=== PATIENT | male | born 1945 | race Caucasian/White ===

== ENCOUNTER → 2023-07-02 | Outpatient (CLI) | payer MEDICARE, OTHER, SELFPAY ==
--- NOTE | 2023-07-02 09:46 | NM_ITS ---
CLINICAL: 78-year-old male with history of recent diagnosis of primary prostate carcinoma. WHOLE BODY 99m Tc MDP RADIONUCLIDE BONE SCINTIGRAPHY COMPARISON: None available FINDINGS: Following the intravenous administration of 28.0 mCi of 99m Tc MDP, whole body bone images reveal: 1. Increased radiotracer distribution is defined in the acromioclavicular and sternoclavicular compartments of both shoulders, the right wrist and hand, the left hip involving the anterior acetabulum-femoral head interface. 2. The remaining skeletal structures are scintigraphically unremarkable with normal-appearing renal images and urinary bladder activity identified. There is calcification of the bilateral costochondral junction. Facilitated uptake is noted in the interorbital aspect of the skull and bilateral maxilla most consistent with periostitis and/or periodontics disease. NM/Bone Scan Whole Body IMPRESSION: 1. The increase in radiopharmaceutical concentration defined in the bilateral shoulders, the right wrist and hand, the left hip is commensurate with degenerative arthrosis. 2. There is no definitive scintigraphic evidence of diffuse axial skeletal metastatic disease on the present examination. Electronically Signed: Enrique Rich DO at 12:01 EDT ,
== END | disposition home or self-care (01) ==
LOC: NM 09:46
PROVIDERS: PCP Family Medicine; Referring Provider Urology; Visit Provider Urology
DX: C61 Malignant neoplasm of prostate (principal)
CPT/HCPCS: 78306; A9503

== ENCOUNTER → 2023-07-09 | Outpatient (CLI) | payer MEDICARE, OTHER, SELFPAY ==
--- NOTE | 2023-07-09 13:01 | CT_ITS ---
STUDY: CT ABDOMEN AND PELVIS WITH CONTRAST REASON FOR EXAM: Male, 78 years old. MALIGNANT NEOPLASM OF PROSTATE RADIATION DOSAGE (If Supplied By Facility): CTDIvol = ( 14.85 ) mGy, DLP = ( 1408.32 ) mGycm TECHNIQUE: IV 50mL Isovue-370 was administered. Transaxial images were obtained from the dome of the diaphragm to the symphysis pubis. Multiplanar coronal and sagittal images were reformatted. Individualized Dose Optimization Techniques Were Used For This CT. COMPARISON: No relevant prior comparison study available FINDINGS: The visualized lung bases are unremarkable. The visualized portions of the heart are within normal limits. Normal liver. Normal gallbladder and extrahepatic biliary system. Normal spleen. Normal pancreas. Normal bilateral adrenal glands. 3.5 cm simple cyst in the upper pole of the right kidney for which no further follow-up exam is needed. Mild nonspecific bilateral perinephric stranding. No evidence of hydronephrosis. Mild thickening of the distal esophagus could reflect gastroesophageal reflux. Normal small intestine. Sigmoid diverticulosis without evidence of acute diverticulitis. The appendix is visualized and appears normal. There is atherosclerotic calcification of the abdominal aorta, without a demonstrated aneurysm. No retroperitoneal adenopathy. Normal urinary bladder. There are prostatic calcifications. Normal abdominal wall. Degenerative changes of the spine. Tiny sclerotic lesion in the vertebral body of L5 could be due to bone island. Otherwise no evidence of destructive bony process. CT/Abdomen/Pelvis W IV Cont ONLY IMPRESSION: 1. No focal acute inflammatory process. 2. Tiny sclerotic lesion in the vertebral body of L5 could be due to bone island. Correlation with bone scan is recommended. 3. Otherwise no evidence of metastatic disease. Mild thickening of the distal esophagus with gas could reflect gastroesophageal reflux. Electronically Signed: Jose Armando MD at 14:21 EDT ,
[2023-07-09 13:37] LABS: CREATININE FINGERSTICK < 1.0 mg/dL (0.70-1.30); EGFR FINGERSTICK > 60.0000 mL/min (>60)
== END | disposition home or self-care (01) ==
LOC: CT 12:56
PROVIDERS: PCP Family Medicine; Referring Provider Urology; Visit Provider Urology
DX: C61 Malignant neoplasm of prostate (principal)
CPT/HCPCS: 74177; Q9967

== ENCOUNTER → 2023-07-27 | Outpatient (CLI) | payer MEDICARE, OTHER, SELFPAY ==
--- NOTE | 2023-07-27 09:30 | PET_ITS ---
EXAMINATION: PSMA-Pylarify PET-CT INDICATIONS: A 78-year-old male with history of primary prostate carcinoma presenting for apparent initial staging examination. COMPARISON: None available. INDEX LESION SIZE SUV PROMISE SCORE INTERPRETATION Prostate gland 35.7 mm 38.13 3 Fulfills quantitative criteria for viable neoplasm. Right inguinal region 11.7 mm 18.53 Approximating 3 Fulfills quantitative criteria for viable neoplasm. TECHNIQUE: Following the intravenous administration of 8.23 mCi of PSMA-Pylarify via the right hand, image acquisitions of the head, neck, chest, abdomen and pelvis to the level of the mid thigh at 73 minutes post-tracer distribution reveal: The examination was interpreted using the EANM (Nelly et al., Journal of Nuclear Medicine Molecular Imaging 44:1622, 2017) and PROMISE (Lewis et al., Journal of Nuclear Medicine 59:469, 2018) interpretive criteria. HEIGHT: 69 inches. WEIGHT: 225 lbs. PSMA expression score PROMISE criteria: High (3): SUV ? parotid-salivary gland, intermediate (2): SUV ? liver, low (1): > blood pool, < liver, (0): < blood pool. SUV reference values: Parotid glands: 19.95 Normal liver parenchyma: 9.1 Blood pool: 1.5 FINDINGS: Head/Neck: Physiologic tracer distribution is noted in the bilateral parotid and submandibular glands. Physiologic uptake is noted in the nasal cavity. There is no evidence of abnormal increased tracer uptake within the context of the cranial vault. CHEST: There is no evidence of abnormal increased radiopharmaceutical within the context of the bilateral hemithorax pulmonary parenchyma, mediastinal structures and right-left thoracic perihilum. Pertinent chest CT findings are as follows. Mediastinal soft tissue densities are ametabolic. There are no parenchymal densities-nodules defined in the right and left hemithorax with quantitatively significant increased tracer uptake. Atherosclerotic calcification is defined in the thoracic aorta without evidence of dilatation, aneurysm formation. Coronary arterial calcification is observed. Abdomen/Pelvis: Radiopharmaceutical concentration is defined in the lower pelvis associated with the prostate gland. The calculated maximum standard uptake value is 38.13. The PROMISE score is 3. The maximum axial diameter of the metabolic, morphologic abnormality is 35.7 mm. There is an asymmetric increase in radiopharmaceutical concentration noted in the right inguinal region. The calculated maximum standard uptake value is 18.53. The PROMISE score approximates 3. The maximum axial diameter of the metabolic, morphologic abnormality is 11.7 mm. There is physiologic tracer uptake noted in the hepatic and splenic parenchyma, the bilateral renal units, the urinary bladder, and visualized intestinal tract. The abdomen and pelvis CT findings are as follows. The gallbladder is surgically absent. There is atherosclerotic calcification defined in the abdominal aorta without evidence of dilatation-aneurysm formation. Abdominal-pelvic arterial calcification is defined. Colonic diverticula are encountered without evidence of diverticulitis. Calcification is noted within the prostate gland. Right and left inguinal fat containing hernias are demonstrated. Cortical cyst formation is defined in the left kidney. Skeletal: Degenerative changes defined in the cervical, thoracic and lumbar spine demonstrate no evidence of glucose hypermetabolism. There is no visualized sclerotic-lytic changes manifest on review of the appendicular-axial skeletal structures. PET/PET/CT Tumor Base -Thigh Init IMPRESSION: 1. ABNORMAL EXAMINATION INDICATIVE OF MALIGNANT-VIABLE NEOPLASM. 2. Increased radiotracer distribution noted within the prostate gland fulfills quantitative criteria for malignant transformation. 3. Facilitated uptake noted in the right inguinal region associated with a single nodular focus fulfills quantitative criteria for viable neoplasia. Electronic Signature Enrique Rich D.O. Accurate Quantification of SUVs and standardized PROMISE scores for this report are calculated using the exclusive [employer], ([place] Patent No. [id number] [phone] [phone] [place] patent [id number] [phone] ). Standardization and correction of the FDG SUV metric exclusively available with [employer] intellectual property, allow for vendor non-specific objective quantitative sequential FDG PET-CT comparison and otherwise unobtainable optimization of the sensitivity and specificity of the examination. [email or web address] Electronically Signed: Enrique Rich DO at 8:23 EDT ,
== END | disposition home or self-care (01) ==
LOC: ONC 09:03
PROVIDERS: PCP Family Medicine; Referring Provider Urology; Visit Provider Urology
DX: C61 Malignant neoplasm of prostate (principal); R97.21 Rising PSA following treatment for malignant neoplasm of prostate
CPT/HCPCS: 78815; A9595

== ENCOUNTER → 2023-08-12 | Outpatient (CLI) | payer MEDICARE, OTHER, SELFPAY ==
--- NOTE | 2023-08-12 08:05 | MRI_ITS ---
STUDY: MR PROSTATE GLAND/ PELVIS WITH T WITHOUT CONTRAST REASON FOR EXAM: Male, 78 years old. elevated PSA, reoccurence prostate CA, frozen area on prostate, 21cc clariscan eval for disease extent/extraprostate disease -- has PSMA PET TECHNIQUE: Standardized fat and water weighted pulse sequences were obtained in all 3 orthogonal planes, pre-and post contrast administration. 21cc clariscan was administered for the contrast portion of the examination. COMPARISON: PET/CT exam dated July 27, 2023. CT of abdomen and pelvis dated July 09, 2023. FINDINGS: Prostate gland volume/size: There is a very small remaining amount of prostate tissue/very small gland measuring 3.7 x 2.07 cm in diameter, that is diffusely heterogeneous in appearance. Correlate with history of prior treatment of the prostate gland or perhaps some inflammatory process that resulted in atrophy. There is diffuse postcontrast enhancement of the prostate parenchyma without a focal discrete mass or nodule seen separate in the parenchyma. On the diffusion-weighted sequence the entire gland is bright with associated dark signal on ADC map which is typically seen with diffuse malignancy. The diffuse nature is similar to the abnormal uptake seen on the PET scan although the uptake on the PET scan was more asymmetric to the right. Anterior fibromuscular stroma: Intact Peripheral zone: Diffusely heterogeneous and nodular Central zone: Diffusely heterogeneous and nodular Transitional zone: Diffusely heterogeneous and nodular Prostate capsule: Intact Seminal vesicles: Very small/hypoplastic. Normal preserved fluid signal on the right but intermediate signal and fibrosis seen in the left seminal vesicles. No visualized mass within the seminal vesicles. Pelvic sidewall lymphadenopathy: None demonstrated Bony structures: No lytic or blastic lesions or active marrow edema. Small bilateral hip joint effusions are present. Bladder: Mild thickening and trabeculation of the bladder wall. Normal amount of fluid distention within the bladder lumen. No visualized bladder masses. Anterior bladder wall urachal remnant noted. Findings suggest sequela chronic cystitis. Normal visualized small intestine. There are multiple colonic diverticula of the sigmoid colon consistent with chronic diverticulosis. There is no pelvic fluid. There is no pelvic mass lesion. No visualized inguinal lymphadenopathy. Small fat-containing right inguinal hernia noted. There are diffuse degenerative changes of the visualized lumbar spine. Normal abdominal wall. MRI/Pelvis W/WO Contrast IMPRESSION: 1. Prostate gland volume/size: There is a very small remaining amount of prostate tissue/very small gland measuring 3.7 x 2.07 cm in diameter, that is diffusely heterogeneous in appearance. Correlate with history of prior treatment of the prostate gland or perhaps some inflammatory process that resulted in atrophy. There is diffuse postcontrast enhancement of the prostate parenchyma without a focal discrete mass or nodule seen separate in the parenchyma. On the diffusion-weighted sequence the entire gland is bright with associated dark signal on ADC map which is typically seen with diffuse malignancy. The diffuse nature is similar to the abnormal uptake seen on the PET scan although the uptake on the PET scan was more asymmetric to the right. 2. PI-RADS 4: high (clinically significant cancer is likely to be present) Reference information: Normal prostate tissue Benign prostatic hypertrophy cancer/tumor - low signal peripheral , transitional, and central zones malignancy appears as bright on DWI and low signal on ADC map Prostate imaging-reporting and data system (PI-RADS) PI-RADS 1: very low (clinically significant cancer is highly unlikely to be present) PI-RADS 2: low (clinically significant cancer is unlikely to be present) PI-RADS 3: intermediate (the presence of clinically significant cancer is equivocal) PI-RADS 4: high (clinically significant cancer is likely to be present) PI-RADS 5: very high (clinically significant cancer is highly likely to be present) PI-RADS X: component of exam technically inadequate or not performed Prostate malignancy distribution: Peripheral zone: 70-80% Transitional zone: 10-20% Central zone: 5% or less Electronically Signed: Mauricio Higgins MD at 14:50 EDT ,
== END | disposition home or self-care (01) ==
LOC: MRI 07:45
PROVIDERS: PCP Family Medicine; Visit Provider Student in an Organized Health Care Education/Training Program
DX: C61 Malignant neoplasm of prostate (principal)
CPT/HCPCS: 72197; A9575